=== PATIENT | male | born 2000 | race Caucasian/White ===

== ENCOUNTER → 2018-01-15 10:11 | Outpatient (CLI) | payer BC, SELFPAY | PROVIDERS: Visit Provider Otolaryngology Otolaryngology/Facial Plastic Surgery | DX: J32.9 Chronic sinusitis, unspecified (principal) | CPT/HCPCS: 87070; 87205 ==

== ENCOUNTER 2018-08-11 18:40 | Emergency (ER) | payer BC, SELFPAY ==
[2018-08-11 18:42] VITALS: BP 143/78; PULSE 92; RESP 16; TEMP 36.3; O2SAT 96; BMI 24.8
--- NOTE | 2018-08-11 18:55 | RAD_ITS ---
STUDY: X-RAY - LEFT HAND, ATTENTION FOURTH FINGER REASON FOR EXAM: Male, 18 years old. Laceration TECHNIQUE: 3 view(s) of the finger were obtained. COMPARISON: None. FINDINGS: Normal metacarpal head. Normal metacarpophalangeal joint. Normal proximal phalanx. Normal middle phalanx. Normal distal phalanx. Normal proximal interphalangeal joint. Normal distal interphalangeal joint. Mild distal soft tissue edema. RAD/Finger(s) Min 2 Views IMPRESSION: No acute bony injury of the finger. Electronically Signed: Dakota Rick DO at 19:33 EST Tel [phone], Service support ,
--- NOTE | 2018-08-11 19:23 | ED.VISSUMM ---
- ER Visit Summary Date of Service: 08/11/18 Chief Complaint: Left ring finger crush injury History of Present Illness: The patient is a 18 M who presents 5 hours after a crush injury to his left ring finger. He accidentally shot his fingertip in a metal door. He has severe throbbing pain. Tetanus is up-to-date. He is right-handed. He was seen at the [facility] and referred to the emergency department due to concern for the injury. Patient denies any other injuries. Physical Examination: patient is awake and alert in no distress. Radial pulse 2+. Examination of the left upper extremity shows bandaging on the finger with splint in place. After bandaging removed and splint removed, patient has a subungual hematoma, no obvious deformity to the finger, full flexion and extension of the DIP and PIP joints. No obvious lacerations. Noted small subungual hematoma. Test Results Clinical Impression(s) from Imaging Studies Finger X-Ray 08/11/18 18:55 IMPRESSION: No acute bony injury of the finger. Electronically Signed: Dakota Rick DO at 19:33 EST Tel [phone], Service support , Medications Given Discontinued Medications Lidocaine HCl (Lidocaine Hcl 1% Mdv) 0 ml INFILT X1 ONE Stop: 08/11/18 19:24 Last Admin: 08/11/18 20:19 Dose: 20 ml Emergency Department Course and Treatment: X-ray was performed of the finger showing no fracture or dislocation. A digital block was performed using 1% lidocaine, and good anesthesia was achieved. Patient's injury was explored, revealing a less than 20% subungual hematoma running from the radial side of the occipital nailbed diagonally to the mid distal portion of the nail, with blood leaking out from under the nail. It did not require trephination. There was no laceration or other injury noted. Patient was given wound care instructions. He will use [id number] pain medication as needed for pain. Discharged home. Treatment Plan: [] Disposition: [] Impression: Crush injury with nailbed laceration and less than 20% subungual hematoma without fracture to the left ring finger This note was generated with [employer] software. It may contain incorrect words, spelling, and punctuation that were not noted in review of the chart prior to signing ED Disposition - Plan for ED Patient: Disposition: Home or Assisted Living Chief Complaint: Upper Extremity Injury Instructions: ED Crush Injury Finger No Fx Referrals: Care Physician,No Primary [Primary Care Provider] - Additional Instructions: Please follow up with the [facility] if you have any further concerns about your finger. There is no fracture (broken bone). Your nailbed has a minor injury that will heal with time. Keep your hands clean and keep the fingertip covered to protect it from dirt and infection until it has healed. If you have any worsening of your condition or any new concerning symptoms, please return immediately to the emergency department for another evaluation.
--- NOTE | 2018-08-11 19:27 | ED.DCSUM_ITS ---
- ER Visit Summary Date of Service: 08/11/18 Chief Complaint: Left ring finger crush injury History of Present Illness: The patient is a 18 M who presents 5 hours after a crush injury to his left ring finger. He accidentally shot his fingertip in a metal door. He has severe throbbing pain. Tetanus is up-to-date. He is right- handed. He was seen at the [facility] and referred to the emergency department due to concern for the injury. Patient denies any other injuries. Physical Examination: patient is awake and alert in no distress. Radial pulse 2+. Examination of the left upper extremity shows bandaging on the finger with splint in place. After bandaging removed and splint removed, patient has a subungual hematoma, no obvious deformity to the finger, full flexion and extension of the DIP and PIP joints. No obvious lacerations. Noted small subungual hematoma. Test Results Clinical Impression(s) from Imaging Studies Finger X-Ray 08/11/18 18:55 IMPRESSION: No acute bony injury of the finger. Electronically Signed: Dakota Rick DO at 19:33 EST Tel [phone], Service support , Medications Given Discontinued Medications Lidocaine HCl (Lidocaine Hcl 1% Mdv) 0 ml INFILT X1 ONE Stop: 08/11/18 19:24 Last Admin: 08/11/18 20:19 Dose: 20 ml Emergency Department Course and Treatment: X-ray was performed of the finger showing no fracture or dislocation. A digital block was performed using 1% lidocaine, and good anesthesia was achieved. Patient's injury was explored, revealing a less than 20% subungual hematoma running from the radial side of the occipital nailbed diagonally to the mid distal portion of the nail, with blood leaking out from under the nail. It did not require trephination. There was no laceration or other injury noted. Patient was given wound care instructions. He will use [id number] pain medication as needed for pain. Discharged home. Treatment Plan: [] Disposition: [] Impression: Crush injury with nailbed laceration and less than 20% subungual hematoma without fracture to the left ring finger This note was generated with [employer] software. It may contain incorrect words, spelling, and punctuation that were not noted in review of the chart prior to signing ED Disposition - Plan for ED Patient: Disposition: Home or Assisted Living Chief Complaint: Upper Extremity Injury Instructions: ED Crush Injury Finger No Fx Referrals: Care Physician,No Primary [Primary Care Provider] - Additional Instructions: Please follow up with the [facility] if you have any further concerns about your finger. There is no fracture (broken bone). Your nailbed has a minor injury that will heal with time. Keep your hands clean and keep the fingertip covered to protect it from dirt and infection until it has healed. If you have any worsening of your condition or any new concerning symptoms, please return immediately to the emergency department for another evaluation.
--- NOTE | 2018-08-11 20:37 | DCINST.ED_ITS ---
ED Disposition - Plan for ED Patient: Disposition: Home or Assisted Living Chief Complaint: Upper Extremity Injury Instructions: ED Crush Injury Finger No Fx Referrals: Care Physician,No Primary [Primary Care Provider] - Additional Instructions: Please follow up with the [facility] if you have any further concerns about your finger. There is no fracture (broken bone). Your nailbed has a minor injury that will heal with time. Keep your hands clean and keep the fingertip covered to protect it from dirt and infection until it has healed. If you have any worsening of your condition or any new concerning symptoms, please return immediately to the emergency department for another evaluation.
[2018-08-11 20:52] VITALS: BP 132/90; PULSE 78; RESP 16; O2SAT 98
== END 2018-08-11 20:59 | disposition home or self-care (01) ==
PROVIDERS: Emergency Provider Emergency Medicine
DX: S67.195D Crushing injury of left ring finger, subsequent encounter (principal); S61.315D Laceration without foreign body of left ring finger with damage to nail, subsequent encounter; W23.0XXD Caught, crushed, jammed, or pinched between moving objects, subsequent encounter
CPT/HCPCS: 73140; 99283